=== PATIENT | male | born 1995 | race Caucasian/White ===

== ENCOUNTER 2017-01-04 14:48 | Emergency (ER) | payer BC ==
[~2017-01-04 14:48] MED LIST: ACET50TA PO; MAXA5TAB10 PO; PERCOCET PO; PRIL40CA PO; ZOFR8TAB PO
[2017-01-04] MEDS ORDERED: ACETAMINOPHEN 325 MG TAB As Ordered ONE (17:45)
[2017-01-04] MEDS ORDERED: IBUPROFEN 800 MG TAB As Ordered ONE (17:45)
[2017-01-04] MEDS ORDERED: LORazepam 2 MG/ML VIAL (J2060) As Ordered ONE (17:47)
[2017-01-04 18:04] LABS: BASO % 0.2 % (0.0-1.0); EOS # 0.2 K/mm3 (0.0-0.50); EOS % 1.7 % (0.0-3.0); LARGE UNSTAINED CELL # 0.1 K/mm3 (0.0-0.4); LARGE UNSTAINED CELL % 0.4 % (0.0-4.0); LYMPH # 1.4 K/mm3 (1.5-6.5); LYMPH % 9.4 % (24.0-44.0); MEAN CORPUSCULAR HEMOGLOBIN 28.7 pg (27.0-33.0); MEAN CORPUSCULAR HGB CONC 34.3 g/dl (32.0-36.5); MEAN CORPUSCULAR VOLUME 83.7 fl (80.0-96.0); MONO # 0.5 K/mm3 (0.0-0.8); MONO % 3.8 % (0.0-5.0); NEUTROPHILS # 11.7 K/mm3 (1.8-7.7); NEUTROPHILS % 84.6 % (36.0-66.0); PLATELET COUNT, AUTOMATED 324 k/mm3 (150-450); RED CELL DISTRIBUTION WIDTH 13.1 % (11.5-14.5); WHITE BLOOD COUNT 13.8 K/mm3 (4.0-10.0)
[2017-01-04] MEDS ORDERED: ONDANSETRON 4MG/2ML VIAL (J2405) As Ordered ONE (18:40)
[2017-01-04 18:42] LABS: ALBUMIN 4.9 GM/DL (3.2-5.2); ALBUMIN/GLOBULIN RATIO 1.44 (1.00-1.93); ALKALINE PHOSPHATASE 66 U/L (45-117); ALT/SGPT 51 U/L (12-78); AMYLASE 77 U/L (25-115); ANION GAP 9 MEQ/L (8-16); AST/SGOT 25 U/L (15-37); BILIRUBIN,DIRECT 0.1 MG/DL (0.0-0.2); BILIRUBIN,TOTAL 0.5 MG/DL (0.2-1.0); BLOOD UREA NITROGEN 9 MG/DL (7-18); CALCIUM LEVEL 9.4 MG/DL (8.5-10.1); CARBON DIOXIDE LEVEL 27 MEQ/L (21-32); CHLORIDE LEVEL 105 MEQ/L (98-107); GLOMERULAR FILTRATION RATE > 60.0 (>60); GLUCOSE, FASTING 112 MG/DL (70-105); POTASSIUM SERUM 3.5 MEQ/L (3.5-5.1); SODIUM LEVEL 141 MEQ/L (136-145); TOTAL PROTEIN 8.3 GM/DL (6.4-8.2)
[2017-01-04] MEDS ORDERED: ISOVUE-370 76% 100ML VIAL (Q9967) As Ordered ONE (19:10)
[2017-01-04 19:11] LABS: AMPHETAMINES LEVEL URINE NEGATIVE (NEGATIVE); BENZODIAZEPINES URINE NEGATIVE (NEGATIVE); COCAINE METABOLITE URINE NEGATIVE (NEGATIVE); CONTROL LINE INT CTR LINE PRESENT; METHADONE URINE NEGATIVE (NEGATIVE); OPIATES URINE NEGATIVE (NEGATIVE); TRICYCLIC ANTIDEPRESS URINE NEGATIVE (NEGATIVE)
--- NOTE | 2017-01-04 20:01 | REP ---
Clinical: Acute lower abdominal pain. Technique: Axial contrast enhanced images from the lung bases to the pubic symphysis using 100 ml Isovue 370 intravenous contrast material with coronal and sagittal re-formations. Comparison: 08/27/2013. Findings: Lung bases are clear. Visualized heart and pericardium normal. Liver, spleen, pancreas, gallbladder, bilateral adrenal glands and kidneys are normal. Incidental 1 mm nonobstructing left intrarenal calculus identified. No perinephric stranding, hydroureteronephrosis or obstructing ureteral calculi identified. The enteric system is without obstruction or acute inflammatory process. Few scattered sigmoid diverticula noted without acute diverticulitis. Normal terminal ileum and appendix identified in the right lower quadrant. Pelvis demonstrates normal bladder and age appropriate prostate/seminal vesicles. No pelvic fluid or ascites. No intraperitoneal or retroperitoneal adenopathy. No free air. Abdominal aorta and vasculature normal. Surrounding musculoskeletal structures intact. Impression: No acute intra-abdominal or pelvic pathology appreciated. Few scattered colonic diverticula without acute diverticulitis. Signed by Frederic Contreras MD 01/04/2017 07:52 P
--- NOTE | 2017-01-04 20:39 | EDDOCDS ---
Nurse's Notes [facility] Name: Dawood Foote Age: 21 yrs Sex: Male : 1995 Arrival Date: 01/04/2017 Time: 14:48 Bed I3 / M3 Private MD: Kenton Bruce Diagnosis: Lower abdominal pain, unspecified;Fever of other and unknown origin;Anxiety disorder, unspecified;Nonspecific mesenteric lymphadenitis Presentation: 01/04 14:51 Presenting complaint: Patient states: Pt presents with vomiting and abdominal pain dls onset this morning pt seen at [facility] given IV fluids and meds for migranes and vomiting. Pt went home sx returned unable to keep meds down due to vomiting. Risk factors: the patient reports not having a history of previous torsion. Adult Sepsis Screening: The patient does not have new or worsening altered mentation. Patient's respiratory rate is less than 22. Systolic blood pressure is greater than 100. Patient has a qSOFA score of 0- Negative Sepsis Screen. Suicide/Homicide risk assessment- the patient denies having any suicidal and/or homicidal ideations and does not present with any other emotional, behavioral or mental health complaints. 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 Transition of care: patient was not received from another setting of care. 14:51 Acuity: ERWIN Level 3 dls 14:51 Method Of Arrival: Walkin/Carried/Asstd dls Triage Assessment: 14:58 General: Appears distressed, uncomfortable, Behavior is anxious. Pain: Pain currently dls is 6 out of 10 on a pain scale. HIV screening NA for this visit Offered previously. GI: Reports lower abdominal pain, upper abd pain, nausea, vomiting. Historical: - Allergies: no known allergies; - Home Meds: 1. dicyclomine 10 mg Oral cap 1 cap 3 times per day 2. Zofran (as hydrochloride) 4 mg Oral tab as needed 3. omeprazole 40 mg Oral cpDR 1 cap once daily 4. omeprazole 20 mg Oral cpDR 1 cap once daily 5. sucralfate 1 gram Oral tab 1 tab 4 times per day 6. prochlorperazine maleate 10 mg Oral tab 1 tab 3 times per day - PMHx: nausea vomiting abdominal pain chronic; Anxiety Disorder; - PSHx: Colonoscopy; - Social history: Smoking status: Patient/guardian denies using No barriers to communication noted, The patient speaks fluent Vietnamese. - Family history: Not pertinent. - : The pt / caregiver states he / she is not on anticoagulants. Home medication list is obtained from the patient. - Exposure Risk Screening:: None identified. Screenin:01 Screening information is obtained from the patient. Fall risk: No risks identified. ja5 Assistance ADL's: requires no assistance with activities of daily living. Abuse/DV Screen: The patient / caregiver reports he/she is: not in a situation that causes fear, pain or injury. Nutritional screening: On no prescribed diet. Advance Directives: Currently, there is no health care proxy. There is no active DNR order. There is no living will. There is no Power of Assistant Manager Retail. home support is adequate. Assessment: 16:58 Reassessment: Patient states symptoms have not improved. General: Appears distressed, kcs ill, well developed, well nourished, well groomed, Behavior is anxious, cooperative. Pain: Location: left lower abdomen and then radiates through his entire body. Neurological: Level of Consciousness is awake, alert. Respiratory: Airway is patent Respiratory effort is even, unlabored, Respiratory pattern is regular, symmetrical. GI: Reports gaseousness. Derm: Skin is intact, is healthy with good turgor, Skin is dry, Skin is normal. 16:58 General: Patient asking for IV fluids.. kcs 17:59 General:. ja5 18:44 General: Appears in no apparent distress, Behavior is cooperative. GI: Reports jc4 "sensitive stomach" right now. Derm: Skin is pink, warm & dry. 19:31 General: Appears in no apparent distress, Behavior is appropriate for age, cooperative. dsf Neurological: Level of Consciousness is awake, alert. Cardiovascular: Capillary refill < 3 seconds. Respiratory: Airway is patent Respiratory effort is even, unlabored, Respiratory pattern is regular, symmetrical. GI: Denies nausea. Derm: Skin is pink, warm & dry. 20:10 Adult Sepsis Screening: The patient does not have new or worsening altered mentation. dsf Patient's respiratory rate is less than 22. Systolic blood pressure is greater than 100. Patient has a qSOFA score of 0- Negative Sepsis Screen. Pain: Location: left lower quadrant Pain currently is 4 out of 10 on a pain scale. Neurological: Level of Consciousness is awake, alert. Cardiovascular: Capillary refill < 3 seconds. Respiratory: Airway is patent Respiratory effort is even, unlabored, Respiratory pattern is regular, symmetrical. GI: Denies nausea. Derm: Skin is pink, warm & dry. 20:36 General: Appears in no apparent distress, comfortable, Behavior is appropriate for age, dsf cooperative. Neurological: Level of Consciousness is awake, alert. Cardiovascular: Capillary refill < 3 seconds Heart tones S1 S2 present. Respiratory: Airway is patent Respiratory effort is even, unlabored, Respiratory pattern is regular, symmetrical. GI: Abdomen is non- distended Bowel sounds present X 4 quads. Abd is soft and non tender X 4 quads. Derm: Skin is pink, warm & dry. Vital Signs: 14:49 BP 158 / 78; Pulse 84; Resp 18; Temp 98.0(O); Pulse Ox 98% on R/A; Weight 104.33 kg ct3 (R); Height 6 ft. 1 in. (185.42 cm) (R); Pain 8/10; 16:58 BP 169 / 91; Pulse 82; Resp 20; Temp 101.3(TE); Pulse Ox 96% on R/A; Pain 9/10; kcs 20:09 BP 132 / 70; Pulse 115; Resp 20; Temp 100.2(O); Pulse Ox 98% on R/A; Pain 4/10; dsf 14:49 Body Mass Index 30.34 (104.33 kg, 185.42 cm) ct3 Vitals: 14:49 Log In Time: January 04, 2017 at 14:47. ct3 ED Course: 14:49 Patient visited by Una Hirsch PCA. ct3 14:49 Kenton Bruce is Private Physician. ct3 14:49 Patient moved to Waiting ct3 14:51 Patient moved to Pre RCE ct3 14:54 Triage Initiated dls 16:36 Patient moved to Triage 3 kcs 17:03 Escobar Monroy PA is PHCP. mo1 17:03 Wilner Berry MD is Attending Physician. mo1 17:09 Patient visited by Elizabeth Ellis RN. mk4 17:14 Patient visited by Escobar Monroy PA. mo1 17:27 Genny Maxwell,POLO is Primary Nurse. kcs 17:27 Kendal Harris RN is Primary Nurse. kcs 17:27 Patient moved to I3 / M3 kcs 17:59 Inserted saline lock: 20 gauge in right antecubital area and blood collected. The ja5 patient tolerated the procedure well. 18:00 Amylase Sent. ja5 18:00 Basic Metabolic Profile Sent. ja5 18:00 CBC with Diff Sent. ja5 18:00 Lipase Sent. ja5 18:00 Liver Profile Sent. ja5 18:00 Urinalysis Sent. ja5 18:02 Patient visited by Genny Maxwell RN. ja5 18:43 The patient / caregiver is instructed regarding the plan of care and ED course. jc4 18:46 Urine Culture Sent. jc4 18:46 Drug Eval Toxicology ED Only Sent. jc4 18:50 Patient visited by Kendal Harris RN. jc4 19:21 [facility] Payment Agreement was scanned into [employer] and attached to record. gjb 19:[address] dsf 19:31 Patient moved to I3 / M3 dsf 19:32 Patient visited by Tessa Christopher RN. dsf 19:39 Patient name changed from Dawood\\S\\\\S\\Qamar\\S\\ to Dawood\\S\\ \\S\\Qamar. EDMS 20:05 CT ABD & PELVIS: IV Contrast Only Returned. EDMS 20:08 Kenton Bruce is Referral Physician. mo1 20:13 Patient visited by Tessa Christohper RN. dsf 20:38 Discontinued lock intact, bleeding controlled, pressure dressing applied, No dsf redness/swelling at site. No procedures done that require assistance. Administered Medications: 17:55 Drug: LORazepam 1 mg [lorazepam 2 mg/mL injection solution (0.5 mL)] Route: IVP; Site: dsf right antecubital; 18:43 Drug: Ondansetron 4 mg [ondansetron HCl 2 mg/mL intravenous solution (2 mL)] Route: jc4 IVP; Site: right antecubital; 18:50 Drug: Ibuprofen 800 mg [ibuprofen 800 mg tablet (1 tabs)] Route: PO; jc4 18:50 Drug: Acetaminophen 975 mg [acetaminophen 325 mg tablet (3 tabs)] Route: PO; jc4 Order Results: Lab Order: Amylase; SPEC'M 17 17:55 Test: AMYLASE; Value: 77; Range: 25-115; Units: U/L; Status: F Lab Order: Basic Metabolic Profile; 01/04/17 17:55 Test: GLUCOSE, FASTING; Value: 112; Range: 70-105; Abnormal: Above high normal; Units: MG/DL; Status: F Test: BLOOD UREA NITROGEN; Value: 9; Range: 7-18; Units: MG/DL; Status: F Test: CREATININE FOR GFR; Value: 1.10; Range: 0.70-1.30; Units: MG/DL; Status: F Test: GLOMERULAR FILTRATION RATE; Value: > 60.0; Range: >60; Status: F Test: SODIUM LEVEL; Value: 141; Range: 136-145; Units: MEQ/L; Status: F Test: POTASSIUM SERUM; Value: 3.5; Range: 3.5-5.1; Units: MEQ/L; Status: F Test: CHLORIDE LEVEL; Value: 105; Range: 98-107; Units: MEQ/L; Status: F Test: CARBON DIOXIDE LEVEL; Value: 27; Range: 21-32; Units: MEQ/L; Status: F Test: ANION GAP; Value: 9; Range: 8-16; Units: MEQ/L; Status: F Test: CALCIUM LEVEL; Value: 9.4; Range: 8.5-10.1; Units: MG/DL; Status: F Test Note: ; Units are mL/min/1.73 m2 Chronic Kidney Disease Staging per NKF: Stage I & II GFR >=60 Normal to Mildly Decreased Stage III GFR 30-59 Moderately Decreased Stage IV GFR 15-29 Severely Decreased Stage V GFR <15 Very Little GFR Left ESRD GFR <15 on [employer] Lab Order: CBC with Diff; SPEC01/04/17 17:55 Test: WHITE BLOOD COUNT; Value: 13.8; Range: 4.0-10.0; Abnormal: Above high normal; Units: K/mm3; Status: F Test: RED BLOOD COUNT; Value: 4.63; Range: 4.30-6.10; Units: M/mm3; Status: F Test: HEMOGLOBIN; Value: 13.3; Range: 14.0-18.0; Abnormal: Below low normal; Units: g/dl; Status: F Test: HEMATOCRIT; Value: 38.7; Range: 42.0-52.0; Abnormal: Below low normal; Units: %; Status: F Test: MEAN CORPUSCULAR VOLUME; Value: 83.7; Range: 80.0-96.0; Units: fl; Status: F Test: MEAN CORPUSCULAR HEMOGLOBIN; Value: 28.7; Range: 27.0-33.0; Units: pg; Status: F Test: MEAN CORPUSCULAR HGB CONC; Value: 34.3; Range: 32.0-36.5; Units: g/dl; Status: F Test: RED CELL DISTRIBUTION WIDTH; Value: 13.1; Range: 11.5-14.5; Units: %; Status: F Test: PLATELET COUNT, AUTOMATED; Value: 324; Range: 150-450; Units: k/mm3; Status: F Test: NEUTROPHILS %; Value: 84.6; Range: 36.0-66.0; Abnormal: Above high normal; Units: %; Status: F Test: LYMPH %; Value: 9.4; Range: 24.0-44.0; Abnormal: Below low normal; Units: %; Status: F Test: MONO %; Value: 3.8; Range: 0.0-5.0; Units: %; Status: F Test: EOS %; Value: 1.7; Range: 0.0-3.0; Units: %; Status: F Test: BASO %; Value: 0.2; Range: 0.0-1.0; Units: %; Status: F Test: LARGE UNSTAINED CELL %; Value: 0.4; Range: 0.0-4.0; Units: %; Status: F Test: NEUTROPHILS #; Value: 11.7; Range: 1.8-7.7; Abnormal: Above high normal; Units: K/mm3; Status: F Test: LYMPH #; Value: 1.4; Range: 1.5-6.5; Abnormal: Below low normal; Units: K/mm3; Status: F Test: MONO #; Value: 0.5; Range: 0.0-0.8; Units: K/mm3; Status: F Test: EOS #; Value: 0.2; Range: 0.0-0.50; Units: K/mm3; Status: F Test: BASO #; Value: 0.0; Range: 0.0-0.2; Units: K/mm3; Status: F Test: LARGE UNSTAINED CELL #; Value: 0.1; Range: 0.0-0.4; Units: K/mm3; Status: F Lab Order: Lipase; [facility] 01/04/17 17:55 Test: LIPASE; Value: 229; Range: 73-393; Units: U/L; Status: F Lab Order: Liver Profile; [facility] 01/04/17 17:55 Test: AST/SGOT; Value: 25; Range: 15-37; Units: U/L; Status: F Test: ALT/SGPT; Value: 51; Range: 12-78; Units: U/L; Status: F Test: ALKALINE PHOSPHATASE; Value: 66; Range: 45-117; Units: U/L; Status: F Test: BILIRUBIN,TOTAL; Value: 0.5; Range: 0.2-1.0; Units: MG/DL; Status: F Test: BILIRUBIN,DIRECT; Value: 0.1; Range: 0.0-0.2; Units: MG/DL; Status: F Test: TOTAL PROTEIN; Value: 8.3; Range: 6.4-8.2; Abnormal: Above high normal; Units: GM/DL; Status: F Test: ALBUMIN; Value: 4.9; Range: 3.2-5.2; Units: GM/DL; Status: F Test: ALBUMIN/GLOBULIN RATIO; Value: 1.44; Range: 1.00-1.93; Status: F Lab Order: Urinalysis; [facility] 01/04/17 18:45 Test: APPEARANCE, URINE; Value: HAZY; Range: CLEAR; Status: F Test: COLOR, URINE; Value: YELLOW; Range: YELLOW; Status: F Test: PH,URINE; Value: 7.0; Range: 5.0-9.0; Units: UNITS; Status: F Test: SPECIFIC GRAVITY URINE AUTO; Value: 1.019; Range: 1.002-1.035; Status: F Test: PROTEIN, URINE AUTO; Value: NEGATIVE; Range: NEGATIVE; Units: mg/dL; Status: F Test: GLUCOSE, URINE (UA) AUTO; Value: NEGATIVE; Range: NEGATIVE; Units: mg/dL; Status: F Test: KETONE, URINE AUTO; Value: NEGATIVE; Range: NEGATIVE; Units: mg/dL; Status: F Test: UROBILINOGEN, URINE AUTO; Value: 0.2; Range: 0.0-2.0; Units: mg/dL; Status: F Test: BILIRUBIN, URINE AUTO; Value: NEGATIVE; Range: NEGATIVE; Status: F Test: NITRITE, URINE AUTO; Value: NEGATIVE; Range: NEGATIVE; Status: F Test: LEUKOCYTE ESTERASE, URINE AUTO; Value: NEGATIVE; Range: NEGATIVE; Status: F Test: BLOOD, URINE BLOOD; Value: NEGATIVE; Range: NEGATIVE; Status: F Test: WBC, URINE AUTO; Value: 0; Range: 0-3; Units: /HPF; Status: F Test: RBC, URINE AUTO; Value: 4; Range: 0-3; Abnormal: Above high normal; Units: /HPF; Status: F Test: BACTERIA, URINE AUTO; Value: NEGATIVE; Range: NEGATIVE; Status: F Test: SQUAMOUS EPITHELIAL CELL UR AU; Value: 0; Range: 0-6; Units: /HPF; Status: F Test: MUCUS, URINE; Value: SMALL; Range: NEGATIVE; Status: F Test: HYALINE CAST, URINE AUTO; Value: 0; Range: 0-1; Units: /LPF; Status: F Lab Order: Drug Eval Toxicology ED Only; SPEC'M 01/04/17 18:45 Test: AMPHETAMINES LEVEL URINE; Value: NEGATIVE; Range: NEGATIVE; Status: F Test: BARBITURATES URINE; Value: NEGATIVE; Range: NEGATIVE; Status: F Test: BENZODIAZEPINES URINE; Value: NEGATIVE; Range: NEGATIVE; Status: F Test: CANNABINOIDS URINE; Value: NEGATIVE; Range: NEGATIVE; Status: F Test: COCAINE METABOLITE URINE; Value: NEGATIVE; Range: NEGATIVE; Status: F Test: METHADONE URINE; Value: NEGATIVE; Range: NEGATIVE; Status: F Test: OPIATES URINE; Value: NEGATIVE; Range: NEGATIVE; Status: F Test: TRICYCLIC ANTIDEPRESS URINE; Value: NEGATIVE; Range: NEGATIVE; Status: F Test Note: ; ALL PRESUMPTIVE POSITIVE FINDINGS ARE UNCONFIRMED NORMAL VALUES THRESHOLD IN NG/ML AMPHETAMINES 1000 METHAMPHETAMINES 1000 BARBITURATES 300 BENZODIAZEPINES 300 CANNABINOIDS (THC) 50 COCAINE METABOLITE 300 METHADONE 300 OPIATES 300 PHENCYCLIDINE 25 TRICYCLIC ANTIDEPRESSANTS 1000 RESULTS ARE FOR MEDICAL PURPOSES ONLY. ALL URINE SPECIMENS WILL BE SAVED FOR 3 DAYS. IF CONFIRMATION OF A PRESUMPTIVE POSTIVE SCREEN RESULT IS DESIRED, CALL CHEMISTRY ([phone]) AND REQUEST URINE TO BE SENT TO REFERENCE LAB. FOR A LIST OF CLOSELY RELATED COMPOUNDS PLEASE CALL THE LAB. Radiology Order: CT ABD & PELVIS: IV Contrast Only Test: CT ABD & PELVIS: IV Contrast Only REASON FOR EXAMINATION: Diverticulitis; Clinical: Acute lower abdominal pain.; ; Technique: Axial contrast enhanced images from the lung bases to the pubic; symphysis using 100 ml Isovue 370 intravenous contrast material with coronal and; sagittal re-formations.; ; Comparison: 08/27/2013.; ; Findings:; Lung bases are clear. Visualized heart and pericardium normal.; ; Liver, spleen, pancreas, gallbladder, bilateral adrenal glands and kidneys are; normal. Incidental 1 mm nonobstructing left intrarenal calculus identified. No; perinephric stranding, hydroureteronephrosis or obstructing ureteral calculi; identified. The enteric system is without obstruction or acute inflammatory; process. Few scattered sigmoid diverticula noted without acute diverticulitis.; Normal terminal ileum and appendix identified in the right lower quadrant.; Pelvis demonstrates normal bladder and age appropriate prostate/seminal vesicles.; No pelvic fluid or ascites. No intraperitoneal or retroperitoneal adenopathy.; No free air. Abdominal aorta and vasculature normal. Surrounding; musculoskeletal structures intact.; ; Impression:; No acute intra-abdominal or pelvic pathology appreciated.; Few scattered colonic diverticula without acute diverticulitis.; ; ; Signed by; Frederic Contreras MD 01/04/2017 07:52 P; Outcome: 20:08 Discharge ordered by Provider. mo1 20:37 Discharge Assessment: Patient awake, alert and oriented x 3. No cognitive and/or dsf functional deficits noted. Patient verbalized understanding of disposition instructions. patient administered narcotics - yes. Pt provided with safe discharge. The following High Risk Discharge criteria are identified: None. Discharged to home ambulatory, with parent. Condition: good. Discharge instructions given to patient, Instructed on discharge instructions, follow up and referral plans. medication usage, no driving heavy equipment, Demonstrated understanding of instructions, medications, Pt was receptive of discharge instructions/ teaching. Prescriptions given X 1. CT Study completed. Property sent home with patient. 20:38 Patient left the ED. dsf Signatures: Dispatcher [employer] Irene Noland, RN RN Sol Ruiz RN RN dls Kendal Harris, POLO RN jc4 Una Hirsch, DISTRIBUTOR SALES CONSULTANT DISTRIBUTOR SALES CONSULTANT ct3 Tessa Christopher RN RN dsf Escobar Monroy PA PA mo1 King, Margaret RN RN adan4 Marlene Barone JessicaRN RN ja5 MTDD
--- NOTE | 2017-01-04 20:39 | EDDOCDS ---
Physician Documentation [facility] Name: Dawood Foote Age: 21 yrs Sex: Male : 1995 Arrival Date: 01/04/2017 Time: 14:48 Bed I3 / M3 Private MD: Kenton Bruce Disposition: 01/04/17 20:08 Discharged to Home/Self Care. Impression: Lower abdominal pain, unspecified, Fever of other and unknown origin, Anxiety disorder, unspecified, Nonspecific mesenteric lymphadenitis. - Condition is Stable. - Discharge Instructions: Abdominal Pain, Adult, Mesenteric Adenitis, Pediatric. - Prescriptions for Ativan 0.5 mg Oral Tablet - take 1 tablet by ORAL route every 8 hours As needed; 20 tablet. - Medication Reconciliation, Local Pharmacy Hours form. - Follow up: Kenton Bruce; When: Call to arrange an appointment; Reason: Recheck today's complaints, Continuance of care. - Problem is new. - Symptoms are unchanged. Historical: - Allergies: no known allergies; - Home Meds: 1. dicyclomine 10 mg Oral cap 1 cap 3 times per day 2. Zofran (as hydrochloride) 4 mg Oral tab as needed 3. omeprazole 40 mg Oral cpDR 1 cap once daily 4. omeprazole 20 mg Oral cpDR 1 cap once daily 5. sucralfate 1 gram Oral tab 1 tab 4 times per day 6. prochlorperazine maleate 10 mg Oral tab 1 tab 3 times per day - PMHx: nausea vomiting abdominal pain chronic; Anxiety Disorder; - PSHx: Colonoscopy; - Social history: Smoking status: Patient/guardian denies using No barriers to communication noted, The patient speaks fluent Lithuanian. - Family history: Not pertinent. - : The pt / caregiver states he / she is not on anticoagulants. Home medication list is obtained from the patient. - Exposure Risk Screening:: None identified. Vital Signs: 01/04 14:49 BP 158 / 78; Pulse 84; Resp 18; Temp 98.0(O); Pulse Ox 98% on R/A; Weight 104.33 kg / ct3 230.01 lbs (R); Height 6 ft. 1 in. (185.42 cm) (R); Pain 8/10; 16:58 BP 169 / 91; Pulse 82; Resp 20; Temp 101.3(TE); Pulse Ox 96% on R/A; Pain 9/10; kcs 20:09 BP 132 / 70; Pulse 115; Resp 20; Temp 100.2(O); Pulse Ox 98% on R/A; Pain 4/10; dsf 14:49 Body Mass Index 30.34 (104.33 kg, 185.42 cm) ct3 MDM: 17:26 IV Saline Lock ordered. mo1 17:26 Undress patient appropriately for examination ordered. mo1 17:26 Ibuprofen 800 mg PO once ordered. mo1 17:26 Acetaminophen Tablet 975 mg PO once ordered. mo1 17:26 LORazepam 1 mg IVP once ordered. mo1 17:26 Amylase Ordered. EDMS 17:26 Basic Metabolic Profile Ordered. EDMS 17:26 CBC with Diff Ordered. EDMS 17:26 Lipase Ordered. EDMS 17:26 Liver Profile Ordered. EDMS 17:27 Urinalysis Ordered. EDMS 17:27 Urine Culture Ordered. EDMS 17:27 NOTHING BY MOUTH+DIET ordered. EDMS 17:39 Drug Eval Toxicology ED Only Ordered. EDMS 18:36 Ondansetron 4 mg IVP once ordered. mo1 18:53 CBC with Diff Reviewed. mo1 18:53 Basic Metabolic Profile Reviewed. mo1 18:53 Liver Profile Reviewed. mo1 18:54 Amylase Reviewed. mo1 18:54 Lipase Reviewed. mo1 18:56 CT ABD & PELVIS: IV Contrast Only Ordered. EDMS 19:16 Financial registration complete. b 19:21 [facility] Payment Agreement was scanned into [employer] and attached to record. gjb 19:58 Drug Eval Toxicology ED Only Reviewed. mo1 Administered Medications: 17:55 Drug: LORazepam 1 mg [lorazepam 2 mg/mL injection solution (0.5 mL)] Route: IVP; Site: dsf right antecubital; 18:43 Drug: Ondansetron 4 mg [ondansetron HCl 2 mg/mL intravenous solution (2 mL)] Route: jc4 IVP; Site: right antecubital; 18:50 Drug: Ibuprofen 800 mg [ibuprofen 800 mg tablet (1 tabs)] Route: PO; jc4 18:50 Drug: Acetaminophen 975 mg [acetaminophen 325 mg tablet (3 tabs)] Route: PO; jc4 Signatures: Dispatcher [employer] EDMS [facility], Irene, POLO RN Sol Ruiz RN RN dls Fuller, Desiree, RN RN dsf O'Hagan, Michael, PA PA mo1 Beck, Gabriela gjb Castle, Jennifer RN jc4 The chart was reviewed and I authenticate all verbal orders and agree with the evaluation and treatment provided.Attachments: 19:21 [facility] [place] nimo MTDD
--- NOTE | 2017-01-06 21:39 | EDDOCDS ---
Nurse's Notes [facility] Name: Dawood Foote Age: 21 yrs Sex: Male : 1995 Arrival Date: 01/04/2017 Time: 14:48 Bed I3 / M3 Private MD: Kenton Bruce Diagnosis: Lower abdominal pain, unspecified;Fever of other and unknown origin;Anxiety disorder, unspecified;Nonspecific mesenteric lymphadenitis Presentation: 01/04 14:51 Presenting complaint: Patient states: Pt presents with vomiting and abdominal pain dls onset this morning pt seen at [facility] given IV fluids and meds for migranes and vomiting. Pt went home sx returned unable to keep meds down due to vomiting. Risk factors: the patient reports not having a history of previous torsion. Adult Sepsis Screening: The patient does not have new or worsening altered mentation. Patient's respiratory rate is less than 22. Systolic blood pressure is greater than 100. Patient has a qSOFA score of 0- Negative Sepsis Screen. Suicide/Homicide risk assessment- the patient denies having any suicidal and/or homicidal ideations and does not present with any other emotional, behavioral or mental health complaints. 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 Transition of care: patient was not received from another setting of care. 14:51 Acuity: ERWIN Level 3 dls 14:51 Method Of Arrival: Walkin/Carried/Asstd dls Triage Assessment: 14:58 General: Appears distressed, uncomfortable, Behavior is anxious. Pain: Pain currently dls is 6 out of 10 on a pain scale. HIV screening NA for this visit Offered previously. GI: Reports lower abdominal pain, upper abd pain, nausea, vomiting. Historical: - Allergies: no known allergies; - Home Meds: 1. dicyclomine 10 mg Oral cap 1 cap 3 times per day 2. Zofran (as hydrochloride) 4 mg Oral tab as needed 3. omeprazole 40 mg Oral cpDR 1 cap once daily 4. omeprazole 20 mg Oral cpDR 1 cap once daily 5. sucralfate 1 gram Oral tab 1 tab 4 times per day 6. prochlorperazine maleate 10 mg Oral tab 1 tab 3 times per day - PMHx: nausea vomiting abdominal pain chronic; Anxiety Disorder; - PSHx: Colonoscopy; - Social history: Smoking status: Patient/guardian denies using No barriers to communication noted, The patient speaks fluent Jordanian. - Family history: Not pertinent. - : The pt / caregiver states he / she is not on anticoagulants. Home medication list is obtained from the patient. - Exposure Risk Screening:: None identified. Screenin:01 Screening information is obtained from the patient. Fall risk: No risks identified. ja5 Assistance ADL's: requires no assistance with activities of daily living. Abuse/DV Screen: The patient / caregiver reports he/she is: not in a situation that causes fear, pain or injury. Nutritional screening: On no prescribed diet. Advance Directives: Currently, there is no health care proxy. There is no active DNR order. There is no living will. There is no Power of Clinical Geneticist. home support is adequate. Assessment: 16:58 Reassessment: Patient states symptoms have not improved. General: Appears distressed, kcs ill, well developed, well nourished, well groomed, Behavior is anxious, cooperative. Pain: Location: left lower abdomen and then radiates through his entire body. Neurological: Level of Consciousness is awake, alert. Respiratory: Airway is patent Respiratory effort is even, unlabored, Respiratory pattern is regular, symmetrical. GI: Reports gaseousness. Derm: Skin is intact, is healthy with good turgor, Skin is dry, Skin is normal. 16:58 General: Patient asking for IV fluids.. kcs 17:59 General:. ja5 18:44 General: Appears in no apparent distress, Behavior is cooperative. GI: Reports jc4 "sensitive stomach" right now. Derm: Skin is pink, warm & dry. 19:31 General: Appears in no apparent distress, Behavior is appropriate for age, cooperative. dsf Neurological: Level of Consciousness is awake, alert. Cardiovascular: Capillary refill < 3 seconds. Respiratory: Airway is patent Respiratory effort is even, unlabored, Respiratory pattern is regular, symmetrical. GI: Denies nausea. Derm: Skin is pink, warm & dry. 20:10 Adult Sepsis Screening: The patient does not have new or worsening altered mentation. dsf Patient's respiratory rate is less than 22. Systolic blood pressure is greater than 100. Patient has a qSOFA score of 0- Negative Sepsis Screen. Pain: Location: left lower quadrant Pain currently is 4 out of 10 on a pain scale. Neurological: Level of Consciousness is awake, alert. Cardiovascular: Capillary refill < 3 seconds. Respiratory: Airway is patent Respiratory effort is even, unlabored, Respiratory pattern is regular, symmetrical. GI: Denies nausea. Derm: Skin is pink, warm & dry. 20:36 General: Appears in no apparent distress, comfortable, Behavior is appropriate for age, dsf cooperative. Neurological: Level of Consciousness is awake, alert. Cardiovascular: Capillary refill < 3 seconds Heart tones S1 S2 present. Respiratory: Airway is patent Respiratory effort is even, unlabored, Respiratory pattern is regular, symmetrical. GI: Abdomen is non- distended Bowel sounds present X 4 quads. Abd is soft and non tender X 4 quads. Derm: Skin is pink, warm & dry. Vital Signs: 14:49 BP 158 / 78; Pulse 84; Resp 18; Temp 98.0(O); Pulse Ox 98% on R/A; Weight 104.33 kg ct3 (R); Height 6 ft. 1 in. (185.42 cm) (R); Pain 8/10; 16:58 BP 169 / 91; Pulse 82; Resp 20; Temp 101.3(TE); Pulse Ox 96% on R/A; Pain 9/10; kcs 20:09 BP 132 / 70; Pulse 115; Resp 20; Temp 100.2(O); Pulse Ox 98% on R/A; Pain 4/10; dsf 14:49 Body Mass Index 30.34 (104.33 kg, 185.42 cm) ct3 Vitals: 14:49 Log In Time: January 04, 2017 at 14:47. ct3 ED Course: 14:49 Patient visited by Una Hirsch PCA. ct3 14:49 Kenton Bruce is Private Physician. ct3 14:49 Patient moved to Waiting ct3 14:51 Patient moved to Pre RCE ct3 14:54 Triage Initiated dls 16:36 Patient moved to Triage 3 kcs 17:03 Escobar Monroy PA is PHCP. mo1 17:03 Wilner Berry MD is Attending Physician. mo1 17:09 Patient visited by Elizabeth Ellis RN. mk4 17:14 Patient visited by Escobar Monroy PA. mo1 17:27 Genny Maxwell,POLO is Primary Nurse. kcs 17:27 Kendal Harris, POLO is Primary Nurse. kcs 17:27 Patient moved to I3 / M3 kcs 17:59 Inserted saline lock: 20 gauge in right antecubital area and blood collected. The ja5 patient tolerated the procedure well. 18:00 Amylase Sent. ja5 18:00 Basic Metabolic Profile Sent. ja5 18:00 CBC with Diff Sent. ja5 18:00 Lipase Sent. ja5 18:00 Liver Profile Sent. ja5 18:00 Urinalysis Sent. ja5 18:02 Patient visited by Genny Maxwell RN. ja5 18:43 The patient / caregiver is instructed regarding the plan of care and ED course. jc4 18:46 Urine Culture Sent. jc4 18:46 Drug Eval Toxicology ED Only Sent. jc4 18:50 Patient visited by Kendal Harris RN. jc4 19:21 [facility] Payment Agreement was scanned into [employer] and attached to record. gjb 19:[address] dsf 19:31 Patient moved to I3 / M3 dsf 19:32 Patient visited by Tessa Christopher RN. dsf 19:39 Patient name changed from Dawood\\S\\\\S\\Qamar\\S\\ to Dawood\\S\\ \\S\\Qamar. EDMS 20:05 CT ABD & PELVIS: IV Contrast Only Returned. EDMS 20:08 Kenton Bruce is Referral Physician. mo1 20:13 Patient visited by Tessa Christopher RN. dsf 20:38 Discontinued lock intact, bleeding controlled, pressure dressing applied, No dsf redness/swelling at site. No procedures done that require assistance. 01/05 09:15 T-Sheet-- Draft Copy was scanned into [employer] and attached to record. gb Administered Medications: 01/04 17:55 Drug: LORazepam 1 mg [lorazepam 2 mg/mL injection solution (0.5 mL)] Route: IVP; Site: dsf right antecubital; 18:43 Drug: Ondansetron 4 mg [ondansetron HCl 2 mg/mL intravenous solution (2 mL)] Route: jc4 IVP; Site: right antecubital; 18:50 Drug: Ibuprofen 800 mg [ibuprofen 800 mg tablet (1 tabs)] Route: PO; jc4 18:50 Drug: Acetaminophen 975 mg [acetaminophen 325 mg tablet (3 tabs)] Route: PO; jc4 Order Results: Lab Order: Amylase; SPEC'M 01/04/17 17:55 Test: AMYLASE; Value: 77; Range: 25-115; Units: U/L; Status: F Lab Order: Basic Metabolic Profile; SPEC'M 01/04/17 17:55 Test: GLUCOSE, FASTING; Value: 112; Range: 70-105; Abnormal: Above high normal; Units: MG/DL; Status: F Test: BLOOD UREA NITROGEN; Value: 9; Range: 7-18; Units: MG/DL; Status: F Test: CREATININE FOR GFR; Value: 1.10; Range: 0.70-1.30; Units: MG/DL; Status: F Test: GLOMERULAR FILTRATION RATE; Value: > 60.0; Range: >60; Status: F Test: SODIUM LEVEL; Value: 141; Range: 136-145; Units: MEQ/L; Status: F Test: POTASSIUM SERUM; Value: 3.5; Range: 3.5-5.1; Units: MEQ/L; Status: F Test: CHLORIDE LEVEL; Value: 105; Range: 98-107; Units: MEQ/L; Status: F Test: CARBON DIOXIDE LEVEL; Value: 27; Range: 21-32; Units: MEQ/L; Status: F Test: ANION GAP; Value: 9; Range: 8-16; Units: MEQ/L; Status: F Test: CALCIUM LEVEL; Value: 9.4; Range: 8.5-10.1; Units: MG/DL; Status: F Test Note: ; Units are mL/min/1.73 m2 Chronic Kidney Disease Staging per NKF: Stage I & II GFR >=60 Normal to Mildly Decreased Stage III GFR 30-59 Moderately Decreased Stage IV GFR 15-29 Severely Decreased Stage V GFR <15 Very Little GFR Left ESRD GFR <15 on FLIGHT CONTROLS ENGINEER Lab Order: CBC with Diff; SPEC'M 01/04/17 17:55 Test: WHITE BLOOD COUNT; Value: 13.8; Range: 4.0-10.0; Abnormal: Above high normal; Units: K/mm3; Status: F Test: RED BLOOD COUNT; Value: 4.63; Range: 4.30-6.10; Units: M/mm3; Status: F Test: HEMOGLOBIN; Value: 13.3; Range: 14.0-18.0; Abnormal: Below low normal; Units: g/dl; Status: F Test: HEMATOCRIT; Value: 38.7; Range: 42.0-52.0; Abnormal: Below low normal; Units: %; Status: F Test: MEAN CORPUSCULAR VOLUME; Value: 83.7; Range: 80.0-96.0; Units: fl; Status: F Test: MEAN CORPUSCULAR HEMOGLOBIN; Value: 28.7; Range: 27.0-33.0; Units: pg; Status: F Test: MEAN CORPUSCULAR HGB CONC; Value: 34.3; Range: 32.0-36.5; Units: g/dl; Status: F Test: RED CELL DISTRIBUTION WIDTH; Value: 13.1; Range: 11.5-14.5; Units: %; Status: F Test: PLATELET COUNT, AUTOMATED; Value: 324; Range: 150-450; Units: k/mm3; Status: F Test: NEUTROPHILS %; Value: 84.6; Range: 36.0-66.0; Abnormal: Above high normal; Units: %; Status: F Test: LYMPH %; Value: 9.4; Range: 24.0-44.0; Abnormal: Below low normal; Units: %; Status: F Test: MONO %; Value: 3.8; Range: 0.0-5.0; Units: %; Status: F Test: EOS %; Value: 1.7; Range: 0.0-3.0; Units: %; Status: F Test: BASO %; Value: 0.2; Range: 0.0-1.0; Units: %; Status: F Test: LARGE UNSTAINED CELL %; Value: 0.4; Range: 0.0-4.0; Units: %; Status: F Test: NEUTROPHILS #; Value: 11.7; Range: 1.8-7.7; Abnormal: Above high normal; Units: K/mm3; Status: F Test: LYMPH #; Value: 1.4; Range: 1.5-6.5; Abnormal: Below low normal; Units: K/mm3; Status: F Test: MONO #; Value: 0.5; Range: 0.0-0.8; Units: K/mm3; Status: F Test: EOS #; Value: 0.2; Range: 0.0-0.50; Units: K/mm3; Status: F Test: BASO #; Value: 0.0; Range: 0.0-0.2; Units: K/mm3; Status: F Test: LARGE UNSTAINED CELL #; Value: 0.1; Range: 0.0-0.4; Units: K/mm3; Status: F Lab Order: Lipase; [facility] 01/04/17 17:55 Test: LIPASE; Value: 229; Range: 73-393; Units: U/L; Status: F Lab Order: Liver Profile; [facility] 01/04/17 17:55 Test: AST/SGOT; Value: 25; Range: 15-37; Units: U/L; Status: F Test: ALT/SGPT; Value: 51; Range: 12-78; Units: U/L; Status: F Test: ALKALINE PHOSPHATASE; Value: 66; Range: 45-117; Units: U/L; Status: F Test: BILIRUBIN,TOTAL; Value: 0.5; Range: 0.2-1.0; Units: MG/DL; Status: F Test: BILIRUBIN,DIRECT; Value: 0.1; Range: 0.0-0.2; Units: MG/DL; Status: F Test: TOTAL PROTEIN; Value: 8.3; Range: 6.4-8.2; Abnormal: Above high normal; Units: GM/DL; Status: F Test: ALBUMIN; Value: 4.9; Range: 3.2-5.2; Units: GM/DL; Status: F Test: ALBUMIN/GLOBULIN RATIO; Value: 1.44; Range: 1.00-1.93; Status: F Lab Order: Urinalysis; [facility] 01/04/17 18:45 Test: APPEARANCE, URINE; Value: HAZY; Range: CLEAR; Status: F Test: COLOR, URINE; Value: YELLOW; Range: YELLOW; Status: F Test: PH,URINE; Value: 7.0; Range: 5.0-9.0; Units: UNITS; Status: F Test: SPECIFIC GRAVITY URINE AUTO; Value: 1.019; Range: 1.002-1.035; Status: F Test: PROTEIN, URINE AUTO; Value: NEGATIVE; Range: NEGATIVE; Units: mg/dL; Status: F Test: GLUCOSE, URINE (UA) AUTO; Value: NEGATIVE; Range: NEGATIVE; Units: mg/dL; Status: F Test: KETONE, URINE AUTO; Value: NEGATIVE; Range: NEGATIVE; Units: mg/dL; Status: F Test: UROBILINOGEN, URINE AUTO; Value: 0.2; Range: 0.0-2.0; Units: mg/dL; Status: F Test: BILIRUBIN, URINE AUTO; Value: NEGATIVE; Range: NEGATIVE; Status: F Test: NITRITE, URINE AUTO; Value: NEGATIVE; Range: NEGATIVE; Status: F Test: LEUKOCYTE ESTERASE, URINE AUTO; Value: NEGATIVE; Range: NEGATIVE; Status: F Test: BLOOD, URINE BLOOD; Value: NEGATIVE; Range: NEGATIVE; Status: F Test: WBC, URINE AUTO; Value: 0; Range: 0-3; Units: /HPF; Status: F Test: RBC, URINE AUTO; Value: 4; Range: 0-3; Abnormal: Above high normal; Units: /HPF; Status: F Test: BACTERIA, URINE AUTO; Value: NEGATIVE; Range: NEGATIVE; Status: F Test: SQUAMOUS EPITHELIAL CELL UR AU; Value: 0; Range: 0-6; Units: /HPF; Status: F Test: MUCUS, URINE; Value: SMALL; Range: NEGATIVE; Status: F Test: HYALINE CAST, URINE AUTO; Value: 0; Range: 0-1; Units: /LPF; Status: F Lab Order: Urine Culture; SPEC'M 01/04/17 18:45 Test: URINE CULTURE; Value: <EXTERNAL COMMENT eCWMed> FULL REPORT IN LAB NOTES (eCW and Medent).; Status: F Test: URINE CULTURE; Value: URINE CULTURE RESULT NO GROWTH; Status: F Lab Order: Drug Eval Toxicology ED Only; SPEC'M 01/04/17 18:45 Test: AMPHETAMINES LEVEL URINE; Value: NEGATIVE; Range: NEGATIVE; Status: F Test: BARBITURATES URINE; Value: NEGATIVE; Range: NEGATIVE; Status: F Test: BENZODIAZEPINES URINE; Value: NEGATIVE; Range: NEGATIVE; Status: F Test: CANNABINOIDS URINE; Value: NEGATIVE; Range: NEGATIVE; Status: F Test: COCAINE METABOLITE URINE; Value: NEGATIVE; Range: NEGATIVE; Status: F Test: METHADONE URINE; Value: NEGATIVE; Range: NEGATIVE; Status: F Test: OPIATES URINE; Value: NEGATIVE; Range: NEGATIVE; Status: F Test: TRICYCLIC ANTIDEPRESS URINE; Value: NEGATIVE; Range: NEGATIVE; Status: F Test Note: ; ALL PRESUMPTIVE POSITIVE FINDINGS ARE UNCONFIRMED NORMAL VALUES THRESHOLD IN NG/ML AMPHETAMINES 1000 METHAMPHETAMINES 1000 BARBITURATES 300 BENZODIAZEPINES 300 CANNABINOIDS (THC) 50 COCAINE METABOLITE 300 METHADONE 300 OPIATES 300 PHENCYCLIDINE 25 TRICYCLIC ANTIDEPRESSANTS 1000 RESULTS ARE FOR MEDICAL PURPOSES ONLY. ALL URINE SPECIMENS WILL BE SAVED FOR 3 DAYS. IF CONFIRMATION OF A PRESUMPTIVE POSTIVE SCREEN RESULT IS DESIRED, CALL CHEMISTRY ([phone]) AND REQUEST URINE TO BE SENT TO REFERENCE LAB. FOR A LIST OF CLOSELY RELATED COMPOUNDS PLEASE CALL THE LAB. Radiology Order: CT ABD & PELVIS: IV Contrast Only Test: CT ABD & PELVIS: IV Contrast Only REASON FOR EXAMINATION: Diverticulitis; Clinical: Acute lower abdominal pain.; ; Technique: Axial contrast enhanced images from the lung bases to the pubic; symphysis using 100 ml Isovue 370 intravenous contrast material with coronal and; sagittal re-formations.; ; Comparison: 08/27/2013.; ; Findings:; Lung bases are clear. Visualized heart and pericardium normal.; ; Liver, spleen, pancreas, gallbladder, bilateral adrenal glands and kidneys are; normal. Incidental 1 mm nonobstructing left intrarenal calculus identified. No; perinephric stranding, hydroureteronephrosis or obstructing ureteral calculi; identified. The enteric system is without obstruction or acute inflammatory; process. Few scattered sigmoid diverticula noted without acute diverticulitis.; Normal terminal ileum and appendix identified in the right lower quadrant.; Pelvis demonstrates normal bladder and age appropriate prostate/seminal vesicles.; No pelvic fluid or ascites. No intraperitoneal or retroperitoneal adenopathy.; No free air. Abdominal aorta and vasculature normal. Surrounding; musculoskeletal structures intact.; ; Impression:; No acute intra-abdominal or pelvic pathology appreciated.; Few scattered colonic diverticula without acute diverticulitis.; ; ; Signed by; Frederic Contreras MD 01/04/2017 07:52 P; Outcome: 20:08 Discharge ordered by Provider. mo1 20:37 Discharge Assessment: Patient awake, alert and oriented x 3. No cognitive and/or dsf functional deficits noted. Patient verbalized understanding of disposition instructions. patient administered narcotics - yes. Pt provided with safe discharge. The following High Risk Discharge criteria are identified: None. Discharged to home ambulatory, with parent. Condition: good. Discharge instructions given to patient, Instructed on discharge instructions, follow up and referral plans. medication usage, no driving heavy equipment, Demonstrated understanding of instructions, medications, Pt was receptive of discharge instructions/ teaching. Prescriptions given X 1. CT Study completed. Property sent home with patient. 20:38 Patient left the ED. dsf Signatures: Dispatcher [employer] EDMS Irene Lombardo, RN RN Sol Ruiz RN RN dls Leela Norman, Reg Reg gb Kendal Harris RN RN jc4 Una Hirsch, DESIGN TECH DESIGN TECH ct3 Tessa Christopher,RN RN dsf Escobar Monroy PA PA mo1 Elizabeth Ellis, RN RN mk4 Marlene Barone Jessica,RN RN ja5 Chart Complete MICHAEL
--- NOTE | 2017-01-06 21:39 | EDDOCDS ---
Physician Documentation [facility] Name: Dawood Foote Age: 21 yrs Sex: Male : 1995 Arrival Date: 01/04/2017 Time: 14:48 Bed I3 / M3 Private MD: Kenton Bruce Disposition: 01/04/17 20:08 Discharged to Home/Self Care. Impression: Lower abdominal pain, unspecified, Fever of other and unknown origin, Anxiety disorder, unspecified, Nonspecific mesenteric lymphadenitis. - Condition is Stable. - Discharge Instructions: Abdominal Pain, Adult, Mesenteric Adenitis, Pediatric. - Prescriptions for Ativan 0.5 mg Oral Tablet - take 1 tablet by ORAL route every 8 hours As needed; 20 tablet. - Medication Reconciliation, Local Pharmacy Hours form. - Follow up: Kenton Bruce; When: Call to arrange an appointment; Reason: Recheck today's complaints, Continuance of care. - Problem is new. - Symptoms are unchanged. Historical: - Allergies: no known allergies; - Home Meds: 1. dicyclomine 10 mg Oral cap 1 cap 3 times per day 2. Zofran (as hydrochloride) 4 mg Oral tab as needed 3. omeprazole 40 mg Oral cpDR 1 cap once daily 4. omeprazole 20 mg Oral cpDR 1 cap once daily 5. sucralfate 1 gram Oral tab 1 tab 4 times per day 6. prochlorperazine maleate 10 mg Oral tab 1 tab 3 times per day - PMHx: nausea vomiting abdominal pain chronic; Anxiety Disorder; - PSHx: Colonoscopy; - Social history: Smoking status: Patient/guardian denies using No barriers to communication noted, The patient speaks fluent Eritrean. - Family history: Not pertinent. - : The pt / caregiver states he / she is not on anticoagulants. Home medication list is obtained from the patient. - Exposure Risk Screening:: None identified. Vital Signs: 01/04 14:49 BP 158 / 78; Pulse 84; Resp 18; Temp 98.0(O); Pulse Ox 98% on R/A; Weight 104.33 kg / ct3 230.01 lbs (R); Height 6 ft. 1 in. (185.42 cm) (R); Pain 8/10; 16:58 BP 169 / 91; Pulse 82; Resp 20; Temp 101.3(TE); Pulse Ox 96% on R/A; Pain 9/10; kcs 20:09 BP 132 / 70; Pulse 115; Resp 20; Temp 100.2(O); Pulse Ox 98% on R/A; Pain 4/10; dsf 14:49 Body Mass Index 30.34 (104.33 kg, 185.42 cm) ct3 MDM: 17:26 IV Saline Lock ordered. mo1 17:26 Undress patient appropriately for examination ordered. mo1 17:26 Ibuprofen 800 mg PO once ordered. mo1 17:26 Acetaminophen Tablet 975 mg PO once ordered. mo1 17:26 LORazepam 1 mg IVP once ordered. mo1 17:26 Amylase Ordered. EDMS 17:26 Basic Metabolic Profile Ordered. EDMS 17:26 CBC with Diff Ordered. EDMS 17:26 Lipase Ordered. EDMS 17:26 Liver Profile Ordered. EDMS 17:27 Urinalysis Ordered. EDMS 17:27 Urine Culture Ordered. EDMS 17:27 NOTHING BY MOUTH+DIET ordered. EDMS 17:39 Drug Eval Toxicology ED Only Ordered. EDMS 18:36 Ondansetron 4 mg IVP once ordered. mo1 18:53 CBC with Diff Reviewed. mo1 18:53 Basic Metabolic Profile Reviewed. mo1 18:53 Liver Profile Reviewed. mo1 18:54 Amylase Reviewed. mo1 18:54 Lipase Reviewed. mo1 18:56 CT ABD & PELVIS: IV Contrast Only Ordered. EDMS 19:16 Financial registration complete. [facility] 19:21 [facility] Payment Agreement was scanned into [employer] and attached to record. gjb 19:58 Drug Eval Toxicology ED Only Reviewed. mo1 01/05 09:15 T-Sheet-- Draft Copy was scanned into [employer] and attached to record. gb Administered Medications: 01/04 17:55 Drug: LORazepam 1 mg [lorazepam 2 mg/mL injection solution (0.5 mL)] Route: IVP; Site: dsf right antecubital; 18:43 Drug: Ondansetron 4 mg [ondansetron HCl 2 mg/mL intravenous solution (2 mL)] Route: jc4 IVP; Site: right antecubital; 18:50 Drug: Ibuprofen 800 mg [ibuprofen 800 mg tablet (1 tabs)] Route: PO; jc4 18:50 Drug: Acetaminophen 975 mg [acetaminophen 325 mg tablet (3 tabs)] Route: PO; jc4 Signatures: Dispatcher [employer] Irene Noland RN RN Sol Ruiz RN RN dls Barnhardt, Gloria, Reg Reg gb Tessa Christopher RN RN dsf O'Hagan, Michael, PA PA mo1 Beck, Gabriela gjb Castle, Jennifer RN jc4 The chart was reviewed and I authenticate all verbal orders and agree with the evaluation and treatment provided.Attachments: 19:21 [facility] Payment Agreement gjb 01/05 09:15 T-Sheet-- Draft Copy gb Chart Complete MTDD
--- NOTE | 2017-01-06 21:39 | EDDOCDS ---
Physician Documentation [facility] Name: Dawood Foote Age: 21 yrs Sex: Male : 1995 Arrival Date: 01/04/2017 Time: 14:48 Bed I3 / M3 Private MD: Kenton Bruce Disposition: 01/04/17 20:08 Discharged to Home/Self Care. Impression: Lower abdominal pain, unspecified, Fever of other and unknown origin, Anxiety disorder, unspecified, Nonspecific mesenteric lymphadenitis. - Condition is Stable. - Discharge Instructions: Abdominal Pain, Adult, Mesenteric Adenitis, Pediatric. - Prescriptions for Ativan 0.5 mg Oral Tablet - take 1 tablet by ORAL route every 8 hours As needed; 20 tablet. - Medication Reconciliation, Local Pharmacy Hours form. - Follow up: Kenton Bruce; When: Call to arrange an appointment; Reason: Recheck today's complaints, Continuance of care. - Problem is new. - Symptoms are unchanged. Historical: - Allergies: no known allergies; - Home Meds: 1. dicyclomine 10 mg Oral cap 1 cap 3 times per day 2. Zofran (as hydrochloride) 4 mg Oral tab as needed 3. omeprazole 40 mg Oral cpDR 1 cap once daily 4. omeprazole 20 mg Oral cpDR 1 cap once daily 5. sucralfate 1 gram Oral tab 1 tab 4 times per day 6. prochlorperazine maleate 10 mg Oral tab 1 tab 3 times per day - PMHx: nausea vomiting abdominal pain chronic; Anxiety Disorder; - PSHx: Colonoscopy; - Social history: Smoking status: Patient/guardian denies using No barriers to communication noted, The patient speaks fluent [place]. - Family history: Not pertinent. - : The pt / caregiver states he / she is not on anticoagulants. Home medication list is obtained from the patient. - Exposure Risk Screening:: None identified. Vital Signs: 01/04 14:49 BP 158 / 78; Pulse 84; Resp 18; Temp 98.0(O); Pulse Ox 98% on R/A; Weight 104.33 kg / ct3 230.01 lbs (R); Height 6 ft. 1 in. (185.42 cm) (R); Pain 8/10; 16:58 BP 169 / 91; Pulse 82; Resp 20; Temp 101.3(TE); Pulse Ox 96% on R/A; Pain 9/10; kcs 20:09 BP 132 / 70; Pulse 115; Resp 20; Temp 100.2(O); Pulse Ox 98% on R/A; Pain 4/10; dsf 14:49 Body Mass Index 30.34 (104.33 kg, 185.42 cm) ct3 MDM: 17:26 IV Saline Lock ordered. mo1 17:26 Undress patient appropriately for examination ordered. mo1 17:26 Ibuprofen 800 mg PO once ordered. mo1 17:26 Acetaminophen Tablet 975 mg PO once ordered. mo1 17:26 LORazepam 1 mg IVP once ordered. mo1 17:26 Amylase Ordered. EDMS 17:26 Basic Metabolic Profile Ordered. EDMS 17:26 CBC with Diff Ordered. EDMS 17:26 Lipase Ordered. EDMS 17:26 Liver Profile Ordered. EDMS 17:27 Urinalysis Ordered. EDMS 17:27 Urine Culture Ordered. EDMS 17:27 NOTHING BY MOUTH+DIET ordered. EDMS 17:39 Drug Eval Toxicology ED Only Ordered. EDMS 18:36 Ondansetron 4 mg IVP once ordered. mo1 18:53 CBC with Diff Reviewed. mo1 18:53 Basic Metabolic Profile Reviewed. mo1 18:53 Liver Profile Reviewed. mo1 18:54 Amylase Reviewed. mo1 18:54 Lipase Reviewed. mo1 18:56 CT ABD & PELVIS: IV Contrast Only Ordered. EDMS 19:16 Financial registration complete. [facility] 19:21 [facility] Payment Agreement was scanned into [employer] and attached to record. gjb 19:58 Drug Eval Toxicology ED Only Reviewed. mo1 01/05 09:15 T-Sheet-- Draft Copy was scanned into [employer] and attached to record. gb Administered Medications: 01/04 17:55 Drug: LORazepam 1 mg [lorazepam 2 mg/mL injection solution (0.5 mL)] Route: IVP; Site: dsf right antecubital; 18:43 Drug: Ondansetron 4 mg [ondansetron HCl 2 mg/mL intravenous solution (2 mL)] Route: jc4 IVP; Site: right antecubital; 18:50 Drug: Ibuprofen 800 mg [ibuprofen 800 mg tablet (1 tabs)] Route: PO; jc4 18:50 Drug: Acetaminophen 975 mg [acetaminophen 325 mg tablet (3 tabs)] Route: PO; jc4 Signatures: Dispatcher [employer] Irene Noland RN RN Sol Ruiz RN RN dls Barnhardt, Gloria, Reg Reg gb Tessa Christopher RN RN dsf O'Hagan, Michael, PA PA mo1 Beck, Gabriela gjb Castle, Jennifer RN jc4 The chart was reviewed and I authenticate all verbal orders and agree with the evaluation and treatment provided.Attachments: 19:21 [facility] Payment Agreement gjb 01/05 09:15 T-Sheet-- Draft Copy gb Chart Complete MTDD
== END 2017-01-04 20:38 | disposition home or self-care (01) ==
LOC: M ED 14:48
DX: F41.9 Anxiety disorder, unspecified (principal); R10.32 Left lower quadrant pain; R11.10 Vomiting, unspecified; R50.9 Fever, unspecified; I88.0 Nonspecific mesenteric lymphadenitis; R06.02 Shortness of breath; Z79.899 Other long term (current) drug therapy
CPT/HCPCS: 36415; 74177; 80048; 80076; 80306; 81001; 82150; 83690; 85025; 87086; 96374; 96375; 99284; J2060; J2405; Q9967

== ENCOUNTER → 2018-08-09 | Outpatient (REF) | payer OTHER ==
[2018-08-09 13:37] LABS: HEMATOCRIT 40.4 % (42.0-52.0); HEMOGLOBIN 13.6 g/dl (13.5-17.5); MEAN CORPUSCULAR HEMOGLOBIN 27.9 pg (27.0-33.0); MEAN CORPUSCULAR HGB CONC 33.7 g/dl (32.0-36.5); MEAN CORPUSCULAR VOLUME 82.8 fl (80.0-96.0); PLATELET COUNT, AUTOMATED 342 10^3/uL (150-450); RED BLOOD COUNT 4.88 10^6/uL (4.30-6.10); RED CELL DISTRIBUTION WIDTH 13.2 % (11.5-14.5); WHITE BLOOD COUNT 7.5 10^3/uL (4.0-10.0)
[2018-08-09 13:41] LABS: APPEARANCE, URINE CLEAR (CLEAR); BACTERIA, URINE AUTO NEGATIVE (NEGATIVE); BILIRUBIN, URINE AUTO NEGATIVE (NEGATIVE); BLOOD, URINE BLOOD NEGATIVE (NEGATIVE); COLOR, URINE COLORLESS (YELLOW); GLUCOSE, URINE (UA) AUTO NEGATIVE (NEGATIVE); KETONE, URINE AUTO NEGATIVE (NEGATIVE); LEUKOCYTE ESTERASE, URINE AUTO NEGATIVE (NEGATIVE); NITRITE, URINE AUTO NEGATIVE (NEGATIVE); PROTEIN, URINE AUTO NEGATIVE (NEGATIVE); RBC, URINE AUTO 0 /HPF (0-3); SPECIFIC GRAVITY URINE AUTO 1.002 (1.002-1.035); SQUAMOUS EPITHELIAL CELL UR AU 0 /HPF (0-6); UROBILINOGEN, URINE AUTO 0.2 mg/dL (0.0-2.0); WBC, URINE AUTO 0 /HPF (0-3)
[2018-08-09 14:34] LABS: ALBUMIN 4.2 GM/DL (3.2-5.2); ALBUMIN/GLOBULIN RATIO 1.17 (1.00-1.93); ALKALINE PHOSPHATASE 62 U/L (45-117); ALT/SGPT 63 U/L (12-78); ANION GAP 8 MEQ/L (8-16); AST/SGOT 33 U/L (7-37); BILIRUBIN,TOTAL 0.5 MG/DL (0.2-1.0); BLOOD UREA NITROGEN 10 MG/DL (7-18); CALCIUM LEVEL 9.4 MG/DL (8.5-10.1); CARBON DIOXIDE LEVEL 28 MEQ/L (21-32); CHLORIDE LEVEL 106 MEQ/L (98-107); CREATININE FOR GFR 1.02 MG/DL (0.70-1.30); FREE T4 0.87 NG/DL (0.76-1.46); GLOMERULAR FILTRATION RATE > 60.0 (>60); GLUCOSE, FASTING 71 MG/DL (70-100); POTASSIUM SERUM 4.1 MEQ/L (3.5-5.1); SODIUM LEVEL 142 MEQ/L (136-145); TOTAL PROTEIN 7.8 GM/DL (6.4-8.2)
== END ==
LOC: M SFHCADAM 11:18
DX: G43.009 Migraine without aura, not intractable, without status migrainosus (principal); K58.0 Irritable bowel syndrome with diarrhea; R80.0 Isolated proteinuria